=== PATIENT | female | born 1990 | race Two or more races ===

== ENCOUNTER 2019-04-02 14:34 | Emergency (ER) | payer SELFPAY ==
[~2019-04-02] VITALS: Ht 147.3 cm; Wt 95.8 kg
[~2019-04-02 14:34] MED LIST: DOCU-131 PO; DOCU100C33 PO; IBUP200T49 PO; OXYC-302 PO
--- NOTE | 2019-04-02 15:10 | NUR ---
PT TO ED FOR + HOME REG TEST 2 DAYS AGO, THEN + URINE AND BLOOD TEST YESTERAY [facility]. PT HAS COPPER IUD IN PLACE. PER PT, IT WAS UNABLE TO BE REMOVED AT [facility] DUE TO "WEIRD ANGLE" AND PAIN. PT STATES US WAS COMPLETED ALSO AND NOTHING WAS SEEN. PT CONNECTED TO MONIOTRS. TACHY, HTN, ALL OTHER VSS ON RA. MED STUDENT TO BS FOR ASSESSMENT. AWAITING EDMD ASSESSMENT.
--- NOTE | 2019-04-02 15:40 | NUR ---
pt to us.
[2019-04-02 15:41] LABS: BASOPHILS # (AUTO) 0.01 x10^3/uL (0-0.1); BASOPHILS % (AUTO) 0 % (0-1); EOSINOPHILS % (AUTO) 4 % (1-7); LYMPHOCYTES % (AUTO) 25 % (22-44); MD NO; MEAN CORPUSCULAR HEMOGLOBIN 25.6 pg (27.0-34.8); MEAN CORPUSCULAR HGB CONC 32.5 g/dL (32.4-35.8); MEAN CORPUSCULAR VOLUME 78.9 fL (80-100); MEAN PLATELET VOLUME 9.2 fL (7.4-10.4); MONOCYTES # (AUTO) 0.62 x10^3/uL (0.2-0.8); MONOCYTES % (AUTO) 8 % (2-9); NEUTROPHILS # (AUTO) 5.11 x10^3/uL (1.8-6.8); NEUTROPHILS % (AUTO) 64 % (42-75); PLATELET COUNT 257 x10^3/uL (130-400); RED BLOOD COUNT 4.53 x10^6/uL (3.82-5.3); RED CELL DISTRIBUTION WIDTH 18.7 % (9.6-15.2)
[2019-04-02 15:52] LABS: ALBUMIN 3.4 g/dL (3.4-5.0); ANION GAP 9 mmol/L (5-15); CALCIUM 8.8 mg/dL (8.5-10.1); CHLORIDE 107 mmol/L (98-107)
[2019-04-02 16:12] LABS: CREATININE 0.72 mg/dL (0.55-1.02)
--- NOTE | 2019-04-02 16:38 | NUR ---
PT BACK FROM US. EDMD UPDATED ON RESULTS. PT RESTING IN ROOM. VSS. IV ESTABLISHED. AWAITING NON DESTRUCTIVE EVALUATION SPECIALIST CONSULT.
--- NOTE | 2019-04-02 17:04 | NUR ---
report to MACRINA Byers, to assume care at this time.
--- NOTE | 2019-04-02 17:11 | NUR ---
pt up self to rr with steady gait.
[2019-04-02 17:57] LABS: ALANINE AMINOTRANSFERASE 64 U/L (12-78); ALBUMIN 3.4 g/dL (3.4-5.0)
[2019-04-02 17:59] LABS: ALKALINE PHOSPHATASE 65 U/L (45-117); BILIRUBIN, DIRECT < 0.1 mg/dL (0.1-0.2); BILIRUBIN,INDIRECT 0.2 mg/dL (0.0-2.0); BILIRUBIN,TOTAL 0.3 mg/dL (0.2-1.0); TOTAL PROTEIN 7.3 g/dL (6.4-8.2)
--- NOTE | 2019-04-02 18:40 | NUR ---
WITH REVIEW OF METHOTREXATE CONSENT PROVIDER READ THAT HEEL ATTACHER MD NEEDS TO PERSONALLY SEE PATIENT PRIOR TO ADMIN HER IN THE HOSPITAL PATIENT/ UPDATED ON ESTIMATED POC
[2019-04-02] MEDS ORDERED: METHOTREXATE/PF 25 MG/ML, 2ML IM ONE (20:00)
--- NOTE | 2019-04-02 20:08 | NUR ---
ENGINE SETTER CALLENED PERISHABLE FREIGHT INSPECTOR- SHE REPORTS SHE WILL BE ABLE TO COME DOWN AND ADMIN MEDICATION SHORTLY ENGINE SETTER CALLED PHARMACY ABOUT MEDICATION- TO DELIVER METHOTREXATE SHORTLY
[2019-04-02 20:39] VITALS: BP 116/64
--- NOTE | 2019-04-02 20:59 | NUR ---
general internal medicine doctor's at bedside administering methotrexate
--- NOTE | 2019-04-02 21:29 | NUR ---
and Romie onco rn met with pt, verified labs and MD order for MTX administration,provided pt's education re: possible side effects and adverse reaction and education re: MTX, verified allergy.Pt met criteria to receive MTX ,Dose verified and Computation double checked by and Romie. Given 10-25- @ 2100 right gluteal IM with small bleeding, pressure applied, bleeding stops less than 30 sec, band aid applied. Pt turned to other side, gave 10-25-19 @ 2105 on left gluteal IM administered, both land christi for injection sites verified by Romie RN, no bleeding observed, band aid applied. Pt tolerated procedure well, no c/o pain on the injection sites. Pt and verbalized understanding on DC instruction, provided written information re: MTX and discharge instruction.
--- NOTE | 2019-04-02 21:30 | NUR ---
NO ABNORMAL SIGN OR SYMPTOMS NOTED POST MED ADMINISTRATION REVIEWED POC ( RETURN TO ER WITH UNCONTROLLED PAIN/BLEEDING, ETC). OTHERWISE UTILIZES PRESCRIBED RX FOR PAIN/NAUSEA AND F/U WITH OB ON FRIDAY FOR REPEAT HCG AND THEN REPEAT METHOTREXATE ADMIN IN 7 DAYS PATIENT/ AGREEABLE
== END 2019-04-02 21:33 | disposition home or self-care (01) ==
LOC: ED 19:31
DX: O00.101 Right tubal pregnancy without intrauterine pregnancy (principal)
CPT/HCPCS: 36415; 76801; 80048; 80076; 82040; 84702; 85025; 86901; 96372; 99284; J9250

== ENCOUNTER 2019-09-03 16:53 | Emergency (ER) | payer OTHER ==
[~2019-09-03] VITALS: Ht 147.3 cm; Wt 90.8 kg
[2019-09-03 16:57] VITALS: BP 154/92
[2019-09-03] MEDS ORDERED: IBUPROFEN 200 MG TABLET PO ONE (17:30)
[2019-09-03] MEDS ORDERED: IBUPROFEN 600 MG TABLET ONE (17:54)
--- NOTE | 2019-09-03 18:15 | NUR ---
BREAK NOTE: PT SITTING IN BED USING CELL PHONE, NAD NOTED AT THIS TIME. RT LEG ELEVATED WITH ICE ON IT.
== END 2019-09-03 18:59 | disposition home or self-care (01) ==
LOC: ED 17:07
DX: S93.621A Sprain of tarsometatarsal ligament of right foot, initial encounter (principal); W01.0XXA Fall on same level from slipping, tripping and stumbling without subsequent striking against object, initial encounter; Y93.89 Activity, other specified; Y92.69 Other specified industrial and construction area as the place of occurrence of the external cause; Y99.0 Civilian activity done for income or pay
CPT/HCPCS: 99283